=== PATIENT | female | born 2000 | race African-American/Black ===

== ENCOUNTER 2024-03-30 17:17 | Emergency (ER) | payer MEDICAID ==
[~2024-03-30] VITALS: Ht 162.6 cm; Wt 65.0 kg
[2024-03-30 17:24] VITALS: O2SAT 99
[2024-03-30] MEDS: ACETAMINOPHEN 500MG TABLET PO ONE (20:59)
[2024-03-30 21:07] LABS: BASOPHILS % 0.2 % (0.0-2.0); EOSINOPHILS % 0.3 % (0.0-5.0); HEMATOCRIT. 44.9 % (36.0-48.0); HEMOGLOBIN. 14.4 g/dL (12.0-16.0); LYMPHOCYTES % 15.7 % (20.0-50.0); MEAN CORPUSCULAR HEMOGLOBIN 26.9 pg (28.0-32.0); MEAN CORPUSCULAR VOLUME 83.9 fL (81.0-99.0); MEAN PLATELET VOLUME 9.5 fl (7.4-10.4); MONOCYTES % 4.5 % (2.0-8.0); NEUTROPHILS % 79.3 % (40.0-76.0); PLATELET 263 x1000/uL (130-400); RED BLOOD CELL COUNT 5.35 mill/uL (4.2-5.4); WHITE BLOOD COUNT 13.9 x1000/uL (4.5-11.0)
[2024-03-30 21:14] LABS: CHLORIDE 104 mEq/L (98-107); POTASSIUM 4.2 mEq/L (3.5-5.1); SODIUM 137 mEq/L (136-145)
[2024-03-30 21:15] LABS: CARBON DIOXIDE 31 mEq/L (21-32)
[2024-03-30 21:16] LABS: CALCIUM 9.5 mg/dL (8.7-10.4)
[2024-03-30 21:20] LABS: CREATININE 0.7 mg/dL (0.6-1.0); GLUCOSE 116 mg/dL (70-105); UREA NITROGEN BLOOD 14 mg/dL (9-23)
[2024-03-30 21:26] LABS: HCG SCREEN NEGATIVE
[2024-03-30 21:30] LABS: CLARITY URINE CLEAR (CLEAR); COLOR URINE YELLOW (YELLOW); GLUCOSE URINE NEGATIVE (NEGATIVE); KETONES URINE NEGATIVE (NEGATIVE); LEUKOCYTE ESTERASE URINE TRACE (NEGATIVE); NITRITE URINE NEGATIVE (NEGATIVE); OCCULT BLOOD URINE NEGATIVE (NEGATIVE); PH URINE 6.5 (4.5-8.0); PROTEIN URINE NEGATIVE (NEGATIVE); SPECIFIC GRAVITY URINE 1.019 (1.005-1.030); UROBILINOGEN URINE 0.2 E.U./dL (0.2-1.0)
[2024-03-30 22:00] VITALS: BP 119/81; PULSE 90; RESP 18; TEMP 36.61404; O2SAT 100
[2024-03-30 22:26] LABS: BACTERIA URINE TRACE; RBC URINE NONE SEEN /hpf (0-2); SQUAMOUS EPITHELIAL CELL URINE FEW /lpf (RARE/1+)
== END 2024-03-30 22:02 | disposition home or self-care (01) ==
LOC: ER 17:17
DX: R10.9 Unspecified abdominal pain (principal); R30.0 Dysuria
CPT/HCPCS: 36415; 80048; 81003; 84703; 85025; 99283

== ENCOUNTER 2024-08-17 18:49 | Emergency (ER) | payer MEDICAID ==
[~2024-08-17] VITALS: Ht 149.9 cm; Wt 64.0 kg
[2024-08-17 18:53] VITALS: O2SAT 100
[2024-08-17] MEDS: FLUORESCEIN SODIUM 1MG/STRIP RIGHTEYE ONE (19:30)
[2024-08-17] MEDS: TETRACAINE 0.5% OPHTH DROPS 4ML RIGHTEYE ONE (19:30)
[2024-08-17] MEDS ORDERED: TOPUD MT (20:43)
[2024-08-17] MEDS ORDERED: SULF1TAB48 MT (20:43)
[2024-08-17] MEDS ORDERED: AMOX1TAB16 MT (20:43)
[2024-08-17 21:04] VITALS: BP 135/93; PULSE 91; RESP 18; TEMP 36.5; O2SAT 100
== END 2024-08-17 21:17 | disposition home or self-care (01) ==
LOC: ER 18:59
DX: L03.213 Periorbital cellulitis (principal); Z79.899 Other long term (current) drug therapy; Z98.890 Other specified postprocedural states
CPT/HCPCS: 99283